=== PATIENT | male | born 1955 | race Caucasian/White ===

== ENCOUNTER → 2019-04-15 | Outpatient (CLI) | payer BC ==
[2019-04-15 10:45] LABS: BASO # 0.1 10*3/uL (0.0-0.1); BASO % 0.4 % (0.0-1.0); EOS # 0.2 10*3/uL (0.0-0.4); EOS % 1.4 % (1.0-4.0); HEMATOCRIT 44.8 % (42.0-52.0); HEMOGLOBIN 15.2 g/dl (14.0-18.0); LYMPH % 16.1 % (27.0-41.0); MEAN CELL VOLUME 95.1 fl (80.0-94.0); MEAN CORPUSCULAR HGB 32.3 pg (27.0-31.0); MEAN CORPUSCULAR HGB CONC 33.9 g/dl (33.0-37.0); MEAN PLATELET VOLUME 9.2 fl (9.6-12.3); MONO # 0.9 10*3/uL (0.1-1.0); MONO % 6.8 % (3.0-9.0); NEUT # 9.4 10*3/uL (2.3-7.9); NEUT % 74.9 % (47.0-73.0); PLATELET COUNT AUTOMATED 287 10*3/uL (130-400); RED BLOOD COUNT 4.71 10*6/uL (4.50-5.90); RED CELL DISTRI WIDTH 12.8 % (0-14.5); WHITE BLOOD COUNT 12.6 10*3/uL (4.8-10.8)
[2019-04-15 11:01] LABS: ALBUMIN 3.5 gm/dl (3.1-4.5); ALKALINE PHOSPHATASE 66 U/L (45-117); BUN 14 mg/dl (7-24); CHLORIDE 107 mmol/L (98-107); CHOLESTEROL 138 mg/dL (<200); CPK 33 U/L (39-308); CREATININE 1.01 mg/dL (0.70-1.30); GAMMA GLUTAMYL TRANSPEPTIDASE 26 U/L (15-85); HDL CHOLESTEROL 40 mg/dl (40-60); LDL CHOLESTEROL 57 mg/dL (9-159); POTASSIUM 3.9 mmol/L (3.5-5.1); SGOT/AST 12 IU/L (3-35); SGPT/ALT 37 U/L (12-78); SODIUM 140 mmol/L (136-145); TOTAL PROTEIN 7.4 gm/dL (6.4-8.2); TRIGLYCERIDES 204 mg/dl (<150); VLDL CHOLESTEROL 41 mg/dL (6-40)
[2019-04-15 12:20] LABS: FERRITIN 254.4 ng/mL (22.0-322.0); VITAMIN D, 25-HYDROXY 24.5 ng/mL (30-100)
[2019-04-15 13:44] LABS: BILIRUBIN NEGATIVE (NEGATIVE); BLOOD NEGATIVE (NEGATIVE); CALCIUM OXALATE CRYSTALS 1+; CLARITY CLOUDY (CLEAR); COLOR YELLOW (YELLOW); GLUCOSE NEGATIVE (NEGATIVE); KETONE NEGATIVE (NEGATIVE); LEUKO ESTERASE NEGATIVE (NEGATIVE); NITRITE NEGATIVE (NEGATIVE); UROBILINOGEN 0.2 E.U./dl (0.2-1.0)
[2019-04-15 13:45] LABS: MUCOUS 1+
== END | disposition home or self-care (01) ==
LOC: LAB 10:07
PROVIDERS: Family Medicine
DX: E55.9 Vitamin D deficiency, unspecified (principal); R53.83 Other fatigue; R79.89 Other specified abnormal findings of blood chemistry

== ENCOUNTER → 2019-12-20 | Outpatient (CLI) | payer BC ==
[2019-12-20 10:59] LABS: BILIRUBIN Negative (Negative); BLOOD Negative (Negative); CLARITY Clear (Clear); COLOR Yellow (Yellow); GLUCOSE Negative (Negative); KETONE Negative (Negative); LEUKO ESTERASE 1+ (Negative); NITRITE Negative (Negative); UROBILINOGEN 0.2 E.U./dl (0.0-1.0)
[2019-12-20 11:02] LABS: BASO # 0.1 10*3/uL (0.0-0.1); BASO % 0.7 % (0.0-1.0); EOS # 0.3 10*3/uL (0.0-0.4); EOS % 4.8 % (1.0-4.0); HEMATOCRIT 45.1 % (42.0-52.0); LYMPH # 2.1 10*3/uL (1.3-4.4); LYMPH % 29.2 % (27.0-41.0); MEAN CELL VOLUME 91.9 fl (80.0-94.0); MEAN CORPUSCULAR HGB 31.2 pg (27.0-31.0); MEAN CORPUSCULAR HGB CONC 33.9 g/dl (33.0-37.0); MONO # 0.5 10*3/uL (0.1-1.0); MONO % 7.6 % (3.0-9.0); NEUT # 4.1 10*3/uL (2.3-7.9); NEUT % 57.6 % (47.0-73.0); PLATELET COUNT AUTOMATED 283 10*3/uL (130-400); RED BLOOD COUNT 4.91 10*6/uL (4.50-5.90); RED CELL DISTRI WIDTH 12.5 % (0-14.5); RETICULOCYTE % 1.61 % (0.50-2.50); WHITE BLOOD COUNT 7.1 10*3/uL (4.8-10.8)
[2019-12-20 11:23] LABS: BACTERIA TRACE; MUCOUS 1+
[2019-12-20 11:33] LABS: ALBUMIN 3.9 gm/dl (3.1-4.5); ALKALINE PHOSPHATASE 75 U/L (45-117); BUN 9 mg/dl (7-24); CHLORIDE 110 mmol/L (98-107); CHOLESTEROL 159 mg/dL (<200); CREATININE 0.96 mg/dL (0.70-1.30); GAMMA GLUTAMYL TRANSPEPTIDASE 42 U/L (15-85); HDL CHOLESTEROL 33 mg/dl (40-60); IRON 97 ug/dL (65-175); LDL CHOLESTEROL 86 mg/dL (9-159); POTASSIUM 3.9 mmol/L (3.5-5.1); SGOT/AST 40 IU/L (3-35); SGPT/ALT 63 U/L (12-78); SODIUM 139 mmol/L (136-145); TOTAL IRON BINDING CAPACITY 330 ug/dl (250-450); TOTAL PROTEIN 8.3 gm/dL (6.4-8.2); TRIGLYCERIDES 200 mg/dl (<150); VLDL CHOLESTEROL 40 mg/dL (6-40)
== END | disposition home or self-care (01) ==
LOC: LAB 10:41
PROVIDERS: ATTEND Family Medicine
DX: R53.83 Other fatigue (principal); R79.89 Other specified abnormal findings of blood chemistry; E78.5 Hyperlipidemia, unspecified

== ENCOUNTER → 2020-02-17 | Outpatient (CLI) | payer MEDICARE, OTHER, BC ==
[~2020-02-17] MED LIST: AMLODIPINE-BEN1 EAC3 PO; CITALOPRAM10 MG PO; CITALOPRAM20 MG PO; CYCLOBENZAPRINE10 MG PO; LIPITOR10 MG PO
== END | disposition home or self-care (01) ==
LOC: COVID19 15:29
PROVIDERS: ATTEND Family Medicine
DX: U07.1 COVID-19 (principal)

== ENCOUNTER 2020-02-20 21:56 | Inpatient (IN) | payer MEDICARE, OTHER, BC ==
[~2020-02-20] VITALS: Ht 177.8 cm; Wt 125.6 kg
[2020-02-20 22:07] VITALS: BP 139/68
[2020-02-20 22:32] LABS: HEMATOCRIT 41.7 % (42.0-52.0); MEAN CELL VOLUME 90.8 fl (80.0-94.0); MEAN CORPUSCULAR HGB 30.5 pg (27.0-31.0); MEAN CORPUSCULAR HGB CONC 33.6 g/dl (33.0-37.0); MEAN PLATELET VOLUME 8.9 fl (9.6-12.3); PLATELET COUNT AUTOMATED 295 10*3/uL (130-400); RED BLOOD COUNT 4.59 10*6/uL (4.50-5.90); RED CELL DISTRI WIDTH 13.3 % (0-14.5); WHITE BLOOD COUNT 11.2 10*3/uL (4.8-10.8)
[2020-02-20 22:37] VITALS: BP 122/65
[2020-02-20 22:48] LABS: ALBUMIN 2.8 gm/dl (3.1-4.5); ALKALINE PHOSPHATASE 61 U/L (45-117); BUN 18 mg/dl (7-24); CHLORIDE 103 mmol/L (98-107); CREATININE 1.25 mg/dL (0.70-1.30); LIPASE 73 U/L (73-393); POTASSIUM 3.3 mmol/L (3.5-5.1); SGOT/AST 80 IU/L (3-35); SGPT/ALT 58 U/L (12-78); SODIUM 135 mmol/L (136-145); TOTAL PROTEIN 7.3 gm/dL (6.4-8.2)
[2020-02-20 22:48] LABS: ABG BASE EXCESS 1.4 mmol/L (-2.0-2.0); ARTERIAL BLOOD GAS PH 7.498 (7.35-7.45)
[2020-02-20 22:53] LABS: PLATELET SUFFICIENCY NORMAL (NORMAL); TOTAL CELLS COUNTED 100 #CELLS
[2020-02-20 22:54] LABS: TROPONIN I < 0.015 ng/ml (<0.045)
[2020-02-20 23:00] VITALS: BP 138/73
[2020-02-20 23:40] VITALS: BP 128/75
--- NOTE | 2020-02-20 23:42 | NUR ---
RESPIRATORY NOTIFIED THAT PT IS TO BE TRANSFERRED TO ICU.
[2020-02-21] VITALS (10 sets, daily range): BP systolic 82–189; BP diastolic 49–86
--- NOTE | 2020-02-21 | NUR ---
A 64 YEAR OLD MALE admitted to ICCU, under the services of ALFREDO Jorgensen DO with a diagnosis of COVID PNEUMONIA. Chief complaint is INCREASING SOB, PULSE OX IN THE 70'S AT HOME. Patient arrived via stretcher from ER. Monitor applied. Initial assessment completed. Vital signs taken and recorded. ALFREDO JORGENSEN DO notified of admission to the unit. Orders received. See assessment for past medical history, medications and allergies. Patient and/or family oriented to unit. [facility] ICCU visitation policy reviewed. Clothing/patient valuable form completed. HEIDY TRAVIS
--- NOTE | 2020-02-21 00:03 | NUR ---
EMILIE CHANGED FROM 100% NRB MASK TO BIPAP. DESATED TO 74% WHILE BEING CHANGED TO BIPAP. 94% AFTER. PT IS ALERT AND ORIENTED.
--- NOTE | 2020-02-21 00:05 | NUR ---
Pt transferred to the ICU from the ER on a 15L NRBM. Transferred pt to the bed and SPO2 74%. Pt placed on BiPap 14/10 and FiO2 85%. SpO2 94%. Alarms on and audible.
[2020-02-21] MEDS ORDERED: LIPITOR10 MG PO (00:32)
[2020-02-21] MEDS ORDERED: CITALOPRAM10 MG PO (00:33)
[2020-02-21] MEDS ORDERED: CITALOPRAM20 MG PO (00:34)
[2020-02-21] MEDS ORDERED: AMLODIPINE-BEN1 EAC3 PO (00:35)
[2020-02-21] MEDS ORDERED: CYCLOBENZAPRINE10 MG PO (00:36)
--- NOTE | 2020-02-21 01:12 | NUR ---
CONSULT INFORMATION GIVEN TO DR VICKERS'S ANSWERING SERVICE. PT RESTING IN BED. TOLERATING BIPAP. GIVES "THUMBS UP" SIGN WHEN I FREQUENTLY CHECK ON HIM.
--- NOTE | 2020-02-21 02:53 | NUR ---
APPEARS TO BE DOZING. BIPAP IN USAGE. PULSE OX LOW 90'S, RR UPPER 20'S TO LOW 30'S.
[2020-02-21 06:10] LABS: HEMATOCRIT 39.1 % (42.0-52.0); MEAN CELL VOLUME 91.8 fl (80.0-94.0); MEAN CORPUSCULAR HGB 30.8 pg (27.0-31.0); MEAN CORPUSCULAR HGB CONC 33.5 g/dl (33.0-37.0); MEAN PLATELET VOLUME 9.3 fl (9.6-12.3); PLATELET COUNT AUTOMATED 298 10*3/uL (130-400); RED BLOOD COUNT 4.26 10*6/uL (4.50-5.90); RED CELL DISTRI WIDTH 13.4 % (0-14.5); WHITE BLOOD COUNT 10.4 10*3/uL (4.8-10.8)
[2020-02-21 06:14] LABS: ALBUMIN 2.6 gm/dl (3.1-4.5); ALKALINE PHOSPHATASE 58 U/L (45-117); BUN 16 mg/dl (7-24); CHLORIDE 104 mmol/L (98-107); CREATININE 0.93 mg/dL (0.70-1.30); LDH 670 U/L (87-241); POTASSIUM 3.6 mmol/L (3.5-5.1); SGOT/AST 67 IU/L (3-35); SGPT/ALT 52 U/L (12-78); SODIUM 136 mmol/L (136-145)
[2020-02-21 06:53] LABS: PLATELET SUFFICIENCY NORMAL (NORMAL); POLYCHROMASIA SLIGHT; TOTAL CELLS COUNTED 100 #CELLS
[2020-02-21 08:11] LABS: ABG BASE EXCESS 2.6 mmol/L (-2.0-2.0); ARTERIAL BLOOD GAS PH 7.465 (7.35-7.45)
--- NOTE | 2020-02-21 08:30 | NUR ---
ENCOURAGED USE OF BI-PAP MUCH TOLERATED AND SELF PRONING.
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
[2020-02-21 14:26] LABS: ABG BASE EXCESS 1.9 mmol/L (-2.0-2.0); ARTERIAL BLOOD GAS PH 7.57 (7.35-7.45)
--- NOTE | 2020-02-21 15:45 | NUR ---
ABG'S CALLED TO DR. FRANCISCO. INTUBATED WITH A # 8 ENDOTUBE AT 24 LIP. TV 500,CMV 16,FIO2 100%, AND PEEP 16. OGT PLACED AND JUSTICE 18 [place]OV[place] PLACED. RIJ MLC INSERTED WITHOUT DIFFICULTY. MEDICATED WITH DIPRIVAN.
[2020-02-21 17:16] LABS: ABG BASE EXCESS 0.2 mmol/L (-2.0-2.0); ARTERIAL BLOOD GAS PH 7.377 (7.35-7.45)
--- NOTE | 2020-02-21 17:58 | NUR ---
ABG REULTS CALLED TO DR FRANCISCO, ORDERS GIVEN TO DECREASE FIO2 TO 70%, ABGS IN 2 HOURS.
[2020-02-21 20:09] LABS: ABG BASE EXCESS -1.3 mmol/L (-2.0-2.0); ARTERIAL BLOOD GAS PH 7.319 (7.35-7.45)
--- NOTE | 2020-02-21 21:00 | NUR ---
called with ABG results. Informed to decrease FiO2 from 70% to 60%. ABG in the AM.
--- NOTE | 2020-02-21 23:21 | NUR ---
FAMILY CALLED IN TO CHECK ON PATIENT.PATIENT FAMILY UPDATED AT THIS TIME.
[2020-02-22] VITALS (24 sets, daily range): BP systolic 82–185; BP diastolic 54–83
--- NOTE | 2020-02-22 01:56 | NUR ---
CALLED DOCTOR ALEIDA PATIENT HEART RTAE HAS BEEN INCREASEING OVER THE LAST COUPLE HOURS CURRENT BP IS 180/88 CURRENTLY
--- NOTE | 2020-02-22 02:15 | NUR ---
PATIENT GIVEN LABETALOL FOR BP. BP NOW 144/72 CURRENTLY.
[2020-02-22 06:11] LABS: ALBUMIN 2.7 gm/dl (3.1-4.5); ALKALINE PHOSPHATASE 64 U/L (45-117); CHLORIDE 105 mmol/L (98-107); CREATININE 0.96 mg/dL (0.70-1.30); LDH 673 U/L (87-241); POTASSIUM 4.2 mmol/L (3.5-5.1); SGOT/AST 69 IU/L (3-35); SODIUM 138 mmol/L (136-145); TOTAL PROTEIN 7.2 gm/dL (6.4-8.2)
[2020-02-22 06:15] LABS: BUN 26 mg/dl (7-24)
[2020-02-22 06:33] LABS: HEMATOCRIT 42.9 % (42.0-52.0); MEAN CORPUSCULAR HGB 31.4 pg (27.0-31.0); MEAN CORPUSCULAR HGB CONC 33.3 g/dl (33.0-37.0); MEAN PLATELET VOLUME 9.8 fl (9.6-12.3); PLATELET COUNT AUTOMATED 382 10*3/uL (130-400); RED BLOOD COUNT 4.55 10*6/uL (4.50-5.90); RED CELL DISTRI WIDTH 13.8 % (0-14.5); WHITE BLOOD COUNT 9.9 10*3/uL (4.8-10.8)
[2020-02-22 06:40] LABS: MEAN CELL VOLUME 94.3 fl (80.0-94.0)
[2020-02-22 07:30] LABS: SGPT/ALT 59 U/L (12-78)
[2020-02-22 07:45] LABS: BURR CELLS FEW; PLATELET SUFFICIENCY NORMAL (NORMAL); TOTAL CELLS COUNTED 100 #CELLS
--- NOTE | 2020-02-22 08:30 | NUR ---
Sedated on vent. Remains on diprivan gtt at 30 arsalan's and nimbex gtt at 2 arsalan;s via rij mlc. Suctioned for small amount oral secretions. Lungs clear bilaterally. Ellsworth draining clear urine with sediment. Ogt intact and clamped.
--- NOTE | 2020-02-22 08:30 | NUR ---
Patient is in COVID isolation precautions and intubated. CM will continue to follow for any discharge planning needs.
[2020-02-22 09:26] LABS: ABG BASE EXCESS -1.5 mmol/L (-2.0-2.0); ARTERIAL BLOOD GAS PH 7.238 (7.35-7.45)
--- NOTE | 2020-02-22 12:00 | NUR ---
Dr. ortega here to see patient. Wants patient to be proned.
--- NOTE | 2020-02-22 15:30 | NUR ---
PRONED BY STAFF. TOLERATED WELL.
--- NOTE | 2020-02-22 16:00 | NUR ---
PULSE OX DROPPED TO 89% SHORTLY AFTER PRONING. ET TUBE REMAINS SECURE AT 26 LIP. 1630- STAT CXR DONE. ABG'S DONE. 1700- SHANELLE BECKY CALLED BACK INTO ROOM. MORE PILLOWS PLACED UNDER CHEST AND HEAD POSITIONED SLIGHTLY TO THE LEFT. PULSE OX INCREASED TO 96%.
[2020-02-22 16:14] LABS: ABG BASE EXCESS 0.1 mmol/L (-2.0-2.0); ARTERIAL BLOOD GAS PH 7.366 (7.35-7.45)
--- NOTE | 2020-02-22 20:00 | NUR ---
Pt resting on ventilator in prone position. SpO2 98% on FiO2 60% ABG sent 2 hours after proning
[2020-02-22 20:07] LABS: ABG BASE EXCESS -0.3 mmol/L (-2.0-2.0); ARTERIAL BLOOD GAS PH 7.327 (7.35-7.45)
--- NOTE | 2020-02-22 21:11 | NUR ---
PT'S CALLS. UPDATED ON PT CONDITION.
--- NOTE | 2020-02-22 23:00 | NUR ---
pt swam as best as i could. head is down and does not turn well
[2020-02-23] VITALS (25 sets, daily range): BP systolic 75–196; BP diastolic 47–93
--- NOTE | 2020-02-23 00:37 | NUR ---
MORPHINE GIVEN AT 0025 PT HYPERTENSIVE...EFFECTIVE, PT BP 130'S.
--- NOTE | 2020-02-23 02:03 | NUR ---
Q2H SWIMMING OF ARMS AND ADJUSTMENT OF HEAD DIRECTED UPON PRONING...DONE BY RESP DEPT.
--- NOTE | 2020-02-23 03:05 | NUR ---
pt swam. arms switch and head pad adjusted
--- NOTE | 2020-02-23 04:30 | NUR ---
PT HYPERTENSIVE. MEDICATED WITH MORPHINE AND EFFECTIVE ALMOST IMMEDIATELY. BP HAS LOWERED AND REMAINS STABLE.
[2020-02-23 05:42] LABS: ALBUMIN 3.1 gm/dl (3.1-4.5); ALKALINE PHOSPHATASE 64 U/L (45-117); BUN 33 mg/dl (7-24); CHLORIDE 106 mmol/L (98-107); LDH 546 U/L (87-241); SGOT/AST 55 IU/L (3-35); SODIUM 139 mmol/L (136-145); TOTAL PROTEIN 7.4 gm/dL (6.4-8.2)
[2020-02-23 06:07] LABS: HEMATOCRIT 42.8 % (42.0-52.0); MEAN CELL VOLUME 95.3 fl (80.0-94.0); MEAN CORPUSCULAR HGB 30.7 pg (27.0-31.0); MEAN CORPUSCULAR HGB CONC 32.2 g/dl (33.0-37.0); MEAN PLATELET VOLUME 9.3 fl (9.6-12.3); NUCLEATED RED BLOOD CELL 0.2 % (0.0-0.0); PLATELET COUNT AUTOMATED 458 10*3/uL (130-400); RED BLOOD COUNT 4.49 10*6/uL (4.50-5.90); WHITE BLOOD COUNT 12.8 10*3/uL (4.8-10.8)
[2020-02-23 06:18] LABS: SGPT/ALT 55 U/L (12-78)
[2020-02-23 06:19] LABS: POTASSIUM 4.1 mmol/L (3.5-5.1)
--- NOTE | 2020-02-23 07:30 | NUR ---
PATIENT UNPRONED AT THIS TIME. ANTHONY FROM [facility] WAS HERE TO ASSIST. PATIENT TOLERATED WELL. ALL LINES AND TUBES ARE IN CORRECT PLACEMENT. ABG TO BE DRAWN IN 2HRS.
[2020-02-23 07:55] LABS: PLATELET SUFFICIENCY NORMAL (NORMAL); TOTAL CELLS COUNTED 100 #CELLS
--- NOTE | 2020-02-23 09:30 | NUR ---
RESPIRATORY HERE DRAWING ABG
[2020-02-23 09:47] LABS: ABG BASE EXCESS 1.5 mmol/L (-2.0-2.0); ARTERIAL BLOOD GAS PH 7.369 (7.35-7.45)
--- NOTE | 2020-02-23 11:15 | NUR ---
DR FRANCISCO IN TO SEE PATIENT.
--- NOTE | 2020-02-23 11:45 | NUR ---
DISCUSSED CASE WITH DR FRANCISCO
--- NOTE | 2020-02-23 13:45 | NUR ---
CALLED IN AND WAS UPDATED ON PLAN OF CARE AND WAS PROVIDED WITH LATEST INFORMATION FROM DOCTORS. ALL QUESTIONS ANSWERED
[2020-02-23 14:11] LABS: ABG BASE EXCESS 1.8 mmol/L (-2.0-2.0); ARTERIAL BLOOD GAS PH 7.327 (7.35-7.45)
--- NOTE | 2020-02-23 15:30 | NUR ---
PATIENT EXPERIENCING PERIODIC HYPOTENSION, LASTS LONG ENOUGH FOR RN TO GO INTO ROOM AND SHUT DIPROVAN OFF FOR APPROXIMATELY 5 MINUTES AND THEN BECOMES HYPERTENSIVE AGAIN. DIPROVAN REMAINS INFUSING AT 40MCGS. RN WILL CONTINUE TO MONITOR
--- NOTE | 2020-02-23 20:00 | NUR ---
PT RESTING IN BED WITH EYES CLOSED. ENDOTUBE PATENT, TIES SECURE, VENT SETTINGS VERIFIED AND FUNCTIONING WITHOUT DIFFICULTY. OGT PATENT, PLACEMENT VERIFIED VIA AIR BOLUS AND TF LUCÍA WELL. JUSTICE PATENT FOR DARK SILVANA URINE.RIGHT IJ MLC AND LEFT ARTLINE PATENT, DRESSINGS DRY AND INTACT. IVF'S INFUSING ORDERED WITHOUT DIFFICULTY. NO S/S OF HYPO/HYPERGLYCEMIA NOTED. ISOLATION PRECAUTIONS MAINTAINED.
[2020-02-24] VITALS (25 sets, daily range): BP systolic 104–202; BP diastolic 63–96
[2020-02-24 05:46] LABS: LDH 508 U/L (87-241)
[2020-02-24 06:11] LABS: HEMATOCRIT 42.5 % (42.0-52.0); MEAN CELL VOLUME 97.3 fl (80.0-94.0); MEAN CORPUSCULAR HGB CONC 32.9 g/dl (33.0-37.0); MEAN PLATELET VOLUME 9.5 fl (9.6-12.3); PLATELET COUNT AUTOMATED 475 10*3/uL (130-400); RED BLOOD COUNT 4.37 10*6/uL (4.50-5.90); RED CELL DISTRI WIDTH 14.1 % (0-14.5); WHITE BLOOD COUNT 12.6 10*3/uL (4.8-10.8)
[2020-02-24 06:50] LABS: PLATELET SUFFICIENCY HIGH (NORMAL); TOTAL CELLS COUNTED 100 #CELLS
[2020-02-24 07:28] LABS: ALKALINE PHOSPHATASE 66 U/L (45-117); BUN 38 mg/dl (7-24); CHLORIDE 111 mmol/L (98-107); CREATININE 1.02 mg/dL (0.70-1.30); POTASSIUM 4.9 mmol/L (3.5-5.1); SGOT/AST 52 IU/L (3-35); SGPT/ALT 56 U/L (12-78); SODIUM 147 mmol/L (136-145); TOTAL PROTEIN 6.6 gm/dL (6.4-8.2)
[2020-02-24 07:30] LABS: TRIGLYCERIDES 1212 mg/dl (<150)
[2020-02-24 08:42] LABS: ABG BASE EXCESS 4.3 mmol/L (-2.0-2.0); ARTERIAL BLOOD GAS PH 7.348 (7.35-7.45)
--- NOTE | 2020-02-24 08:48 | NUR ---
DR FRANCISCO NOTIFIED OF TRIGLYCERIDES AND DIPROVAN AT 50MCG/KG/MIN
--- NOTE | 2020-02-24 09:00 | NUR ---
Patient is in COVID isolation precautions and intubated. CM will continue to follow for any discharge planning needs.
[2020-02-24 12:10] LABS: BILIRUBIN Negative (Negative); BLOOD 2+ (Negative); CLARITY Clear (Clear); COLOR Yellow (Yellow); GLUCOSE Negative (Negative); KETONE Negative (Negative); LEUKO ESTERASE Negative (Negative); NITRITE Negative (Negative); SPECIFIC GRAVITY >= 1.030 (1.001-1.030); UROBILINOGEN 0.2 E.U./dl (0.0-1.0)
[2020-02-24 12:47] LABS: RBC TNTC rbc/hpf (0-2)
[2020-02-24 12:54] LABS: BACTERIA 2+; URIC ACID CRYSTALS 2+
--- NOTE | 2020-02-24 13:20 | NUR ---
pt given sedation vacation while nimnex held and ketamine d/arely, started at 1250, 1315 pt able to open eyes wiggle toes and wiggle fingers, given 5mg versed for vent control. HR down, and bp down after versed
--- NOTE | 2020-02-24 13:47 | NUR ---
pt starting to pull 1040 TV, AFTER WAKING UP A LITTLE, NIMBEX STARTED BACK UP AT 2MCG/KG/MIN
[2020-02-24 14:10] LABS: ABG BASE EXCESS 3.8 mmol/L (-2.0-2.0); ARTERIAL BLOOD GAS PH 7.376 (7.35-7.45)
--- NOTE | 2020-02-24 14:33 | NUR ---
IV VERSED GIVEN FOR INCREASED HR\ AND BP
[2020-02-24 17:25] LABS: ABG BASE EXCESS 4.5 mmol/L (-2.0-2.0); ARTERIAL BLOOD GAS PH 7.309 (7.35-7.45)
--- NOTE | 2020-02-24 18:49 | NUR ---
USING Q1HR VERSED AND PRN DIULADID FOR SEDATION WHILE ON VENT AND NIMBEX
--- NOTE | 2020-02-24 19:45 | NUR ---
DR FRANCISCO CALLED IN AND ORDER FOR HALDOL TO BE GIVEN X2 BETWEEN SCHEDULES DOSES IF NEEDED.
[2020-02-24 19:52] LABS: ABG BASE EXCESS 6.2 mmol/L (-2.0-2.0); ARTERIAL BLOOD GAS PH 7.368 (7.35-7.45)
--- NOTE | 2020-02-24 20:00 | NUR ---
PT RESTING IN BED WITH EYES CLOSE. ENDOTUBE PATENT, TIES SECURE, VENT SETTINGS VERIFIED AND FUNCTIONING WITHOUT DIFFICULTY. OGT PATENT, PLACEMENT VERIFIED VIA AIRBOLUS. TF LUCÍA WELL. RIGHT IJ MLC AND LEFT ART LINE PATENT, DRESSINGS DRY AND INTACT. JUSTICE PATENT FOR DARK SILVANA URINE. NO S/S OF HYPO/HYPERGLYCEMIA NOTED. ISOLATION PRECAUTIONS MAINTAINED.
[2020-02-25] VITALS (24 sets, daily range): BP systolic 97–191; BP diastolic 57–89
--- NOTE | 2020-02-25 01:50 | NUR ---
MEDICATED WITH DILAUDID FOR S/S OF PAIN.
[2020-02-25 05:55] LABS: MEAN CELL VOLUME 97.5 fl (80.0-94.0); MEAN CORPUSCULAR HGB 30.2 pg (27.0-31.0); MEAN CORPUSCULAR HGB CONC 30.9 g/dl (33.0-37.0); MEAN PLATELET VOLUME 9.1 fl (9.6-12.3); PLATELET COUNT AUTOMATED 423 10*3/uL (130-400); RED BLOOD COUNT 4.41 10*6/uL (4.50-5.90); WHITE BLOOD COUNT 8.2 10*3/uL (4.8-10.8)
[2020-02-25 06:08] LABS: ALBUMIN 2.7 gm/dl (3.1-4.5); BUN 41 mg/dl (7-24); CHLORIDE 113 mmol/L (98-107); CREATININE 1.06 mg/dL (0.70-1.30); POTASSIUM 4.4 mmol/L (3.5-5.1); SGOT/AST 57 IU/L (3-35); SGPT/ALT 57 U/L (12-78); SODIUM 149 mmol/L (136-145); TOTAL PROTEIN 6.5 gm/dL (6.4-8.2)
[2020-02-25 06:10] LABS: ALKALINE PHOSPHATASE 65 U/L (45-117); CPK 585 U/L (39-308); LDH 398 U/L (87-241)
--- NOTE | 2020-02-25 06:35 | NUR ---
MEDICATED WITH PRN VERSED, DILAUDID, AND HALDOL SEVERAL TIMES THROUGHOUT SHIFT AND EFFECTIVE FOR SHORT PERIODS OF TIME.
--- NOTE | 2020-02-25 08:00 | NUR ---
ENDOTUBE SECURE AT 26CM LIP. REMAINS ON NIMBEX 1MIC. ARTERIAL LINE CALIBRATED WITH GOOD WAVE. RIJ INPLACE. REPOSITIONED. VSS. OGT INPLACE PLACEMENT CHECKED WITH AIR BOLUS. ROBERTO COTTON RN
[2020-02-25 08:12] LABS: ATYPICAL LYMPHS 1 % (0-0); PLATELET SUFFICIENCY HIGH (NORMAL); TOTAL CELLS COUNTED 100 #CELLS
[2020-02-25 08:50] LABS: ABG BASE EXCESS 5.4 mmol/L (-2.0-2.0); ARTERIAL BLOOD GAS PH 7.403 (7.35-7.45)
--- NOTE | 2020-02-25 09:00 | NUR ---
Patient is in COVID isolation precautions and intubated. CM will continue to follow for any discharge planning needs.
--- NOTE | 2020-02-25 12:00 | NUR ---
NIMBEX TITRATED TO 0.5MIC. CONTINUES TO BE MEDICATED WITH HALDOL AND VERSED ORDERED. ROBERTO COTTON RN
--- NOTE | 2020-02-25 13:30 | NUR ---
RIGHT NARES NGT INSERTED WITHOUT DIFFUCULTY. PLACEMENT CHECKED WITH AIR BOLUS AND CHEST XRAY. ROBERTO COTTON RN
[2020-02-25 16:55] LABS: ABG BASE EXCESS 7.2 mmol/L (-2.0-2.0); ARTERIAL BLOOD GAS PH 7.451 (7.35-7.45)
--- NOTE | 2020-02-25 21:15 | NUR ---
SPOKE WITH PATIENTS AND UPDATED HER ON PLAN OF CARE AND PATIENT CONDITION. ALL QUESTIONS ANSWERED
--- NOTE | 2020-02-25 21:54 | NUR ---
MEDICATED WITH MORPHINE, DILUADID, VERSED AND HALDOL PER DRS ORDERS FOR PERSEVED PAIN AND AGITATION. BLOOD PRESSURE HAS BEEN ELEVATED FOR SOME TIME
[2020-02-26] VITALS (24 sets, daily range): BP systolic 95–197; BP diastolic 53–86
--- NOTE | 2020-02-26 03:15 | NUR ---
MEDICATED WITH SEVERAL MEDICATIONS AT THIS TIME FOR VARIOUS PERSEVED COMPLAINTS.
--- NOTE | 2020-02-26 03:25 | NUR ---
TYLENOL VIA NG TUBE WAS GIVEN FOR ELEVATED TEMPERATURE.
[2020-02-26 04:54] LABS: HEMATOCRIT 42.3 % (42.0-52.0); MEAN CELL VOLUME 98.1 fl (80.0-94.0); MEAN CORPUSCULAR HGB 30.9 pg (27.0-31.0); MEAN CORPUSCULAR HGB CONC 31.4 g/dl (33.0-37.0); MEAN PLATELET VOLUME 9.1 fl (9.6-12.3); NUCLEATED RED BLOOD CELL 0.2 % (0.0-0.0); PLATELET COUNT AUTOMATED 391 10*3/uL (130-400); RED BLOOD COUNT 4.31 10*6/uL (4.50-5.90)
[2020-02-26 05:15] LABS: ALBUMIN 2.8 gm/dl (3.1-4.5); ALKALINE PHOSPHATASE 61 U/L (45-117); BUN 38 mg/dl (7-24); CHLORIDE 117 mmol/L (98-107); CPK 593 U/L (39-308); CREATININE 0.95 mg/dL (0.70-1.30); LDH 360 U/L (87-241); POTASSIUM 4.5 mmol/L (3.5-5.1); SGOT/AST 46 IU/L (3-35); SGPT/ALT 58 U/L (12-78); SODIUM 152 mmol/L (136-145); TOTAL PROTEIN 6.5 gm/dL (6.4-8.2); TRIGLYCERIDES 597 mg/dl (<150)
[2020-02-26 05:27] LABS: ATYPICAL LYMPHS 1 % (0-0); PLATELET SUFFICIENCY NORMAL (NORMAL); TOTAL CELLS COUNTED 100 #CELLS
--- NOTE | 2020-02-26 05:34 | NUR ---
MEDICATED WITH VERSED FOR PERSEVED PAIN AND AGITATION. BLOOD PRESSURE IS ELEVATED.
--- NOTE | 2020-02-26 08:30 | NUR ---
MEDICATED WITH 2 TYLENOL FOR TEMP 100.9 RECTALLY. HEART RATE 120'S SINUS TACH. LUNGS CLEAR BILATERALLY. NGT IN PLACE AND PULMOCARE INFUSING AT 20CC/HR. 10CC RESIDUAL NOTED. JUSTICE DRAINING CLEAR YELLOW URINE. SOFT RESTRAINTS ON TO BILATERAL WRIST. NIMBEX GTT INFUSING AT 0.5 ELAYNE'S
[2020-02-26 08:42] LABS: ABG BASE EXCESS 8.7 mmol/L (-2.0-2.0); ARTERIAL BLOOD GAS PH 7.492 (7.35-7.45)
--- NOTE | 2020-02-26 11:30 | NUR ---
DR. VICKERS HERE TO SEE PATIENT. COMPLETE BATH AND BED DONE
[2020-02-26 11:51] LABS: ABG BASE EXCESS 7.8 mmol/L (-2.0-2.0); ARTERIAL BLOOD GAS PH 7.393 (7.35-7.45)
--- NOTE | 2020-02-26 12:00 | NUR ---
NIMEX GTT INCREASED TO 2 ELAYNE'S
[2020-02-26 14:51] LABS: ABG BASE EXCESS 6.3 mmol/L (-2.0-2.0); ARTERIAL BLOOD GAS PH 7.345 (7.35-7.45)
--- NOTE | 2020-02-26 16:00 | NUR ---
REMAINS PARALYZED ON VENT.
[2020-02-27] VITALS (24 sets, daily range): BP systolic 106–173; BP diastolic 62–85
--- NOTE | 2020-02-27 05:15 | NUR ---
MORNING LABS COLLECTED AND SENT AT THIS TIME. PATIENT REPOSITIONED AND TURNED IN BED. NO SIGNS OR SYMPTOMS OF DISTRESS. RN WILL CONTINUE TO MONITOR
[2020-02-27 05:59] LABS: ALBUMIN 2.8 gm/dl (3.1-4.5); ALKALINE PHOSPHATASE 66 U/L (45-117); BUN 34 mg/dl (7-24); CHLORIDE 115 mmol/L (98-107); CREATININE 0.96 mg/dL (0.70-1.30); LDH 367 U/L (87-241); POTASSIUM 5.1 mmol/L (3.5-5.1); SGOT/AST 41 IU/L (3-35); SGPT/ALT 62 U/L (12-78); SODIUM 151 mmol/L (136-145); TOTAL PROTEIN 6.8 gm/dL (6.4-8.2)
[2020-02-27 06:10] LABS: CPK 307 U/L (39-308)
[2020-02-27 06:22] LABS: HEMATOCRIT 46.2 % (42.0-52.0); MEAN CELL VOLUME 100.2 fl (80.0-94.0); MEAN CORPUSCULAR HGB 30.6 pg (27.0-31.0); MEAN CORPUSCULAR HGB CONC 30.5 g/dl (33.0-37.0); MEAN PLATELET VOLUME 9.5 fl (9.6-12.3); PLATELET COUNT AUTOMATED 432 10*3/uL (130-400); RED BLOOD COUNT 4.61 10*6/uL (4.50-5.90); RED CELL DISTRI WIDTH 13.9 % (0-14.5); WHITE BLOOD COUNT 12.6 10*3/uL (4.8-10.8)
[2020-02-27 07:10] LABS: PLATELET SUFFICIENCY HIGH (NORMAL); TOTAL CELLS COUNTED 100 #CELLS
[2020-02-27 08:46] LABS: ABG BASE EXCESS 8.6 mmol/L (-2.0-2.0); ARTERIAL BLOOD GAS PH 7.402 (7.35-7.45)
--- NOTE | 2020-02-27 13:00 | NUR ---
DR. FRANCISCO HERE TO SEE PATIENT
--- NOTE | 2020-02-27 14:15 | NUR ---
NIMBEX GTT TURNED OFF
[2020-02-27 16:18] LABS: ABG BASE EXCESS 7.4 mmol/L (-2.0-2.0); ARTERIAL BLOOD GAS PH 7.388 (7.35-7.45)
--- NOTE | 2020-02-27 17:01 | NUR ---
SLUGGISH TO OPEN EYES AND FOLLOW COMMANDS. TAPPING LEG AND FEET
--- NOTE | 2020-02-27 18:10 | NUR ---
PER DR FRANCISCO, MODE CHANGED TO CPAP OF 8 WITH PS OF 15 AND 40%. WITHIN 2 MINS, RR INCREAsed to 40 vst 300-400. HR 127 SPO2 TO 90% MODE CHANGED BACK TO AC WITH PREVIOUS SETTINGS AND FIO2 INCREASED BACK TO 50% PT RESTING COMFORTABLY.
--- NOTE | 2020-02-27 19:07 | NUR ---
TYLENOL GIVEN FOR RECTAL TEMP 103.1
[2020-02-27 20:48] LABS: ABG BASE EXCESS 6.7 mmol/L (-2.0-2.0); ARTERIAL BLOOD GAS PH 7.494 (7.35-7.45)
--- NOTE | 2020-02-27 21:30 | NUR ---
PATIENT PLACED ON HYPERTHERMIA BLANKET DUE TO TEMP 104.0 RECTAL.TYLENOL GIVEN AT 1900 NOT EFFECTIVE.
--- NOTE | 2020-02-27 23:37 | NUR ---
PATIENT GIVEN VERSED PATIENT SHAKING HIS LEGS RESPS ARE IN THE 40'S
[2020-02-28] VITALS (23 sets, daily range): BP systolic 89–158; BP diastolic 61–93
--- NOTE | 2020-02-28 00:12 | NUR ---
PATIENT TEMP CURRENTLY 100.1 ON COOLING BLANKET.
[2020-02-28 06:32] LABS: MEAN CELL VOLUME 100.4 fl (80.0-94.0); MEAN CORPUSCULAR HGB CONC 30.8 g/dl (33.0-37.0); PLATELET COUNT AUTOMATED 417 10*3/uL (130-400); RED BLOOD COUNT 4.78 10*6/uL (4.50-5.90); RED CELL DISTRI WIDTH 13.7 % (0-14.5); WHITE BLOOD COUNT 13.8 10*3/uL (4.8-10.8)
--- NOTE | 2020-02-28 06:37 | NUR ---
AFTER SEVERAL ATTEMPTS THIS MORNING PATIENT DID LOOK AT ME AND DID SQUEEZE MY HAND WHEN INSTRUCTED TO.
[2020-02-28 06:39] LABS: ALBUMIN 3.1 gm/dl (3.1-4.5); CHLORIDE 118 mmol/L (98-107); CREATININE 1.35 mg/dL (0.70-1.30); LDH 473 U/L (87-241); POTASSIUM 4.5 mmol/L (3.5-5.1); SGOT/AST 58 IU/L (3-35); SGPT/ALT 58 U/L (12-78); SODIUM 154 mmol/L (136-145); TOTAL PROTEIN 6.7 gm/dL (6.4-8.2)
[2020-02-28 06:52] LABS: ALKALINE PHOSPHATASE 62 U/L (45-117)
[2020-02-28 06:54] LABS: BUN 61 mg/dl (7-24); CPK 1456 U/L (39-308)
[2020-02-28 07:22] LABS: TOTAL CELLS COUNTED 100 #CELLS
[2020-02-28 07:23] LABS: PLATELET SUFFICIENCY HIGH (NORMAL); ROULEAUX SLIGHT
[2020-02-28 07:59] LABS: ABG BASE EXCESS 6.6 mmol/L (-2.0-2.0); ARTERIAL BLOOD GAS PH 7.471 (7.35-7.45)
--- NOTE | 2020-02-28 09:00 | NUR ---
Patient is in COVID isolation precautions and intubated. CM will follow for any discharge planning needs.
[2020-02-28 14:17] LABS: ABG BASE EXCESS 5.7 mmol/L (-2.0-2.0); ARTERIAL BLOOD GAS PH 7.486 (7.35-7.45)
--- NOTE | 2020-02-28 15:00 | NUR ---
PEEP DECREASED TO +5, PSV DECREASED TO +[address] FRANCISCO.
[2020-02-28 17:35] LABS: ABG BASE EXCESS 5.7 mmol/L (-2.0-2.0); ARTERIAL BLOOD GAS PH 7.49 (7.35-7.45)
--- NOTE | 2020-02-28 18:20 | NUR ---
HALDOL 2.5MG IV GIVEN ORDERED. ROBERTO COTTON RN
--- NOTE | 2020-02-28 20:00 | NUR ---
Pt resting comfortably on the ventilator with eyes closed on CPAP 15/5 and 30%
--- NOTE | 2020-02-28 20:45 | NUR ---
SPOKE WITH DR FRANCISCO VIA PHONE, UPDATED ON PATIENT CONDITION AFTER RECEIVING EARLIER MEDIATION. STATES TO KEEP PATIENT ON CPAP MODE THROUGHOUT THE NIGHT, GIVE HALDOL PRN IF NEEDED FOR INCREASED AGITATION THROUGH THE NIGHT BUT ONLY IF NECCESSARY.
--- NOTE | 2020-02-28 21:00 | NUR ---
CALLED PATIENTS NAD UPDATED HER ON PLAN OF CARE AND POSSIBLE EXTUBATION IN THE AM.
[2020-02-29] VITALS (16 sets, daily range): BP systolic 101–144; BP diastolic 62–84
--- NOTE | 2020-02-29 00:15 | NUR ---
PATIENT BATHED AT THIS TIME, HE HAS HAD LARGE LIQUID BROWN BOWEL MOVEMENT ALL OVER THE BED. TOLERATED WELL. PATIENT REMAINED ON CPAP THROUGOUT THE ENTIRE TIME. RN WILL CONTINUE TO MONITOR
--- NOTE | 2020-02-29 00:31 | NUR ---
TYLENOL GIVEN TO PATIENT FOR ELEVATED TEMPERATURE. PER CONTINUOUS RECTAL PROBE HE IS 102. COOLING BLANKET APPLIED TO PATIENT WELL. RN WILL CONTINUE TO MONITOR
--- NOTE | 2020-02-29 00:32 | NUR ---
TYLENOL GIVEN FOR ELEVATED TEMPERATURE. RN WILL MONITOR
--- NOTE | 2020-02-29 02:30 | NUR ---
SPOKE WITH GRANDSON ABOUT POSSIBLE EXTUBATION. ALL QUESTIONS ANSWERED.
--- NOTE | 2020-02-29 03:45 | NUR ---
PATIENT RESTING QUIETLY WITH EYES CLOSED. NO SIGNS OR SYMPTOMS OF DISTRESS SEEN ON CPAP MODE 15/5 AND 30% OXYGEN. PATIENT REMAINS FEBRILE AND COOLING BLANKET IN PLACE. RECTAL PROBE STILL IN PLACE AND READING 101.2.
[2020-02-29 06:15] LABS: ALBUMIN 2.6 gm/dl (3.1-4.5); BUN 62 mg/dl (7-24); CHLORIDE 123 mmol/L (98-107); CREATININE 1.24 mg/dL (0.70-1.30); POTASSIUM 4.5 mmol/L (3.5-5.1); SGOT/AST 49 IU/L (3-35); SGPT/ALT 50 U/L (12-78); SODIUM 155 mmol/L (136-145)
[2020-02-29 06:19] LABS: ALKALINE PHOSPHATASE 64 U/L (45-117); CPK 935 U/L (39-308); LDH 397 U/L (87-241); TOTAL PROTEIN 5.7 gm/dL (6.4-8.2)
[2020-02-29 06:26] LABS: HEMATOCRIT 47.7 % (42.0-52.0); MEAN CELL VOLUME 99.6 fl (80.0-94.0); MEAN CORPUSCULAR HGB 31.5 pg (27.0-31.0); MEAN CORPUSCULAR HGB CONC 31.7 g/dl (33.0-37.0); MEAN PLATELET VOLUME 10.6 fl (9.6-12.3); PLATELET COUNT AUTOMATED 360 10*3/uL (130-400); RED BLOOD COUNT 4.79 10*6/uL (4.50-5.90); RED CELL DISTRI WIDTH 13.9 % (0-14.5); WHITE BLOOD COUNT 17.4 10*3/uL (4.8-10.8)
[2020-02-29 07:33] LABS: PLATELET SUFFICIENCY NORMAL (NORMAL); TOTAL CELLS COUNTED 100 #CELLS
[2020-02-29 08:28] LABS: ABG BASE EXCESS 3.4 mmol/L (-2.0-2.0); ARTERIAL BLOOD GAS PH 7.432 (7.35-7.45)
--- NOTE | 2020-02-29 08:36 | NUR ---
MEDICATED WITH 2 TYLENOL FOR TEMP 101
--- NOTE | 2020-02-29 09:15 | NUR ---
COVID +. Patient is intubated. Discharge plan undecided at this time. CM will continue to follow for any discharge planning needs.
--- NOTE | 2020-02-29 13:00 | NUR ---
EXTUBATED. PLACED ON BI-PAP 28/12 AND O2 35%. DROWSY. OPENS EYES WHEN NAME IS CALLED AND THEN GOES BACK TO SLEEP. 1320- PULSE OX 87% ON BI-PAP. O2 INCREASED TO 55%
--- NOTE | 2020-02-29 13:18 | NUR ---
PT. EXTUBATED TO BIPAP 14/10 WITH 40% O2 AT APPRX. 1300, ABG IN 2 HOURS.
--- NOTE | 2020-02-29 13:50 | NUR ---
TEMP 100.8 RECTALLY
[2020-02-29 14:00] LABS: ARTERIAL BLOOD GAS PH 7.354 (7.35-7.45)
--- NOTE | 2020-02-29 15:00 | NUR ---
COMPLETE BED AND BATH DONE. EYES FIXED UP. SQUEEZES HANDS ON COMMAND.
[2020-02-29 15:40] LABS: ABG BASE EXCESS 0.9 mmol/L (-2.0-2.0); ARTERIAL BLOOD GAS PH 7.244 (7.35-7.45)
--- NOTE | 2020-02-29 16:33 | NUR ---
EDMAR ARREOLA FROM [facility] HERE. NEW ARTERIAL LINE PLACED RT RADIAL. OLD LEFT RADIAL ARTERIAL LINE REMOVED. CATHETER TIP COLLECTED IN STERILE CUP. SHE IS NOW WORKING ON [employer]. PT IS LETHARGIC. ON BIPAP. JUSTICE PATENT SILVANA URINE. COOLING BLANKET ON TOP OF PATIENT.
--- NOTE | 2020-02-29 18:36 | NUR ---
EDMAR ARREOLA UNABLE TO PLACE A LIJ MLC. PCXR WAS DONE AFTER TO R/O PNEUMOTHORAX. THE INTERPRETATION SAYS ETT IN ADEQUATE POSITION BUT PT DOESN'T HAVE AN ETT. [facility] CALLED AND ARE TO BE PLACING ADDENDUM TO XRAY REPORT. DR CLEVELAND WAS NOTIFIED THAT UNABLE TO GET ANOTHER MLC. SHE ASKED THAT I TRY TO GET A PERIPHERAL. A #20 ACCUCATH PLACED RT ANTECUBITAL USING ULTRASOUND FOR GUIDANCE. PT HAD BEEN INCONTINENT OF LIQUID BM. COMPLETE BED CHANGE AND YI CARE DONE.
--- NOTE | 2020-02-29 19:23 | NUR ---
RIJ MLC WAS REMOVED INTACT. TIP INTO STERILE CUP WITH STERILE SCISSORS.
[2020-02-29 20:10] LABS: ABG BASE EXCESS 3.3 mmol/L (-2.0-2.0); ARTERIAL BLOOD GAS PH 7.433 (7.35-7.45)
--- NOTE | 2020-02-29 20:10 | NUR ---
ABG RESULTS CALLED BY RESPIRATORY TO DR FRANCISCO. NO NEW ORDERS
--- NOTE | 2020-02-29 21:04 | NUR ---
PATIENT MEDICATED WITH HALDOL FOR INCREASED RESPIRATIONS R/T POSSIBLE ANXIETY. RN WILL MONITOR FOR EFFECTIVENESS
--- NOTE | 2020-02-29 21:20 | NUR ---
RESPIRATORY INCREASED OXYGEN TO 80% DUE TO PATIENT PULSE OXIMETRY REMAINING AT 88%, INCREASED TO 90% AFTER INCREASING OXYGEN
[2020-03-01] VITALS (24 sets, daily range): BP systolic 68–113; BP diastolic 39–67
[2020-03-01 05:45] LABS: ALBUMIN 2.4 gm/dl (3.1-4.5); CREATININE 1.44 mg/dL (0.70-1.30); POTASSIUM 5.4 mmol/L (3.5-5.1); TOTAL PROTEIN 5.4 gm/dL (6.4-8.2)
[2020-03-01 06:15] LABS: HEMATOCRIT 46.5 % (42.0-52.0); MEAN CELL VOLUME 98.5 fl (80.0-94.0); MEAN CORPUSCULAR HGB 31.1 pg (27.0-31.0); MEAN CORPUSCULAR HGB CONC 31.6 g/dl (33.0-37.0); MEAN PLATELET VOLUME 11.4 fl (9.6-12.3); PLATELET COUNT AUTOMATED 314 10*3/uL (130-400); RED BLOOD COUNT 4.72 10*6/uL (4.50-5.90); RED CELL DISTRI WIDTH 13.3 % (0-14.5); WHITE BLOOD COUNT 27.7 10*3/uL (4.8-10.8)
[2020-03-01 06:55] LABS: TOTAL CELLS COUNTED 100 #CELLS
[2020-03-01 06:56] LABS: PLATELET SUFFICIENCY NORMAL (NORMAL); POLYCHROMASIA SLIGHT
--- NOTE | 2020-03-01 08:00 | NUR ---
PATIENT IS LETHARGIC ON BIPAP. OPENS EYES BUT DOES NOT FOLLOW COMMANDS. BIPAP FIO2 IS 70% POX 98% LUNGS VERY DIMINISHED BUT CLEAR. OBESE ABDOMEN PULMOCARE INFUSING @40/HR. JUSTICE PATENT FOR LIGHT YELLOW URINE. ART LINE ZEROED.
[2020-03-01 08:24] LABS: ABG BASE EXCESS 3.1 mmol/L (-2.0-2.0); ARTERIAL BLOOD GAS PH 7.489 (7.35-7.45)
--- NOTE | 2020-03-01 09:29 | NUR ---
CM spoke to , Martha, via phone. Patient states lives at home with his , dog, and 2 cats. There are 0 steps in the home. There is 1 outside step. Physician: Dr. Garfield Law Pharmacy: [facility] health services: would like OV on discharge Patient's level of ADLs: INDEPENDENT Patient has working utilities: yes DME: c-pap Follow-up physician's appointment after d/c: will be made by the hospitalist nurse director upon discharge Does patient want to access PORTAL?: no Discharge plan discussed with . Patient lives with her and their dog and 2 cats. She states they are all on one floor with the exception of 1 step to get in from outside. He is normally independent in his ADLs and ambulation. Discussed short term rehab and she refuses. Discussed home health care services and she is agreeable. When provided with a list of agencies she chose [facility]. Will await therapy recommendations to speak further with the . Discharge plan undecided at this time. CM will continue to follow for any discharge planning needs. ALMAZ ARAUJO
--- NOTE | 2020-03-01 10:47 | NUR ---
Spoke to , Martha, regarding her needing extensive rehab after discharge from the hospital. Discussed local SNFs and LTACs and she is not agreeable at all. She would like to speak to her grandson who is a nurse and gets his thoughts. Awaiting return call.
[2020-03-01 14:05] LABS: ABG BASE EXCESS 1.2 mmol/L (-2.0-2.0); ARTERIAL BLOOD GAS PH 7.381 (7.35-7.45)
--- NOTE | 2020-03-01 14:10 | NUR ---
ABG DONE ON 40% VIA BIPAP.
--- NOTE | 2020-03-01 19:22 | NUR ---
TYLENOL GIVEN FOR POTENTIAL PAIN HALDOL GIVEN FOR POTENTIAL UNFORSEEN ANXIETY LEVAPHED STARTED AT [address] LENTZ AWARE UPDATED PT HAS NO RESPONSE TO PAIN, VERBAL OR TACTILE STIMULI REPOSITIONED
--- NOTE | 2020-03-01 20:40 | NUR ---
DR FRANCISCO UPDATED-ORDERED FOR REINTUBATION SORAIDA NOTIFIED
--- NOTE | 2020-03-01 21:00 | NUR ---
GAVE PER,ISSION FOR INTUBATION AND LINE INSERTION
--- NOTE | 2020-03-01 21:49 | NUR ---
PATIENT RE INTUBATED , PLACED ON SETTING: A/C 12,500,60%,8+ PER DR FRANCISCO.
--- NOTE | 2020-03-01 22:30 | NUR ---
PT HAS BEEN REINTUBATED BY [facility] CENTRAL LINE PLACED IN RIJ PT NOW ON DIPROVAN AT 10 NIMBEX AT 0.5 LEVAPHED AT 20M VASOPRESSIN AT 0.04 CENTRAL LINE AND ETT VERIFIED BY ANESTHIA
[2020-03-01 23:14] LABS: ARTERIAL BLOOD GAS PH 7.24 (7.35-7.45)
[2020-03-02] VITALS (60 sets, daily range): BP systolic 15–108; BP diastolic 6–67
--- NOTE | 2020-03-02 04:00 | NUR ---
EPI DRIP STARTED FOR MAP 61 LEVAPHED MAXED, VASOPRESSIN MAXED DR LENTZ AWARE
--- NOTE | 2020-03-02 05:30 | NUR ---
COOLING BLANKET PLACED ON PT CRITICAL LABS CALLED TO RESIDENT
--- NOTE | 2020-03-02 05:44 | NUR ---
DR FRANCISCO UPDATED, ON VS, AND HE STILL WANTS PT TO BE PRONED
[2020-03-02 06:01] LABS: ALBUMIN 2.2 gm/dl (3.1-4.5); CREATININE 3.62 mg/dL (0.70-1.30); POTASSIUM 5.6 mmol/L (3.5-5.1); TOTAL PROTEIN 4.7 gm/dL (6.4-8.2)
[2020-03-02 07:26] LABS: BASO # 0.1 10*3/uL (0.0-0.1); BASO % 0.2 % (0.0-1.0); HEMATOCRIT 40.6 % (42.0-52.0); LYMPH # 2.9 10*3/uL (1.3-4.4); LYMPH % 8.6 % (27.0-41.0); MEAN CORPUSCULAR HGB 31.2 pg (27.0-31.0); MEAN CORPUSCULAR HGB CONC 29.1 g/dl (33.0-37.0); MEAN PLATELET VOLUME 12.8 fl (9.6-12.3); MONO # 4.7 10*3/uL (0.1-1.0); MONO % 14.1 % (3.0-9.0); NEUT # 24.9 10*3/uL (2.3-7.9); NEUT % 75.7 % (47.0-73.0); NUCLEATED RED BLOOD CELL 0.1 10*3/uL (0.0-0.0); NUCLEATED RED BLOOD CELL 0.2 % (0.0-0.0); PLATELET COUNT AUTOMATED 224 10*3/uL (130-400); RED BLOOD COUNT 3.78 10*6/uL (4.50-5.90); RED CELL DISTRI WIDTH 14.2 % (0-14.5)
[2020-03-02 07:28] LABS: MEAN CELL VOLUME 107.4 fl (80.0-94.0)
[2020-03-02 07:45] LABS: PLATELET SUFFICIENCY NORMAL (NORMAL); TOTAL CELLS COUNTED 100 #CELLS
--- NOTE | 2020-03-02 08:00 | NUR ---
PT REMAINS INTUBATED, PARALYZED AND SEDATED. PT REMAINS TACHYCARDIC IN 120'S. MAP 59-72 ON LEVOPHED,VASOPRESSIN AND EPINEPHERINE GTT'S. POX 100% ON 60% FIO2. PT IN PRONED POSITION. LUNG GARCIA DIM. SUCTIONED PT SMALL AMOUNT OF WHITE MUCUS. NGT PLACMENT VERIFIED WITH AN AIR BOLUS. ACTIVE BOWEL SOUNDS. JUSTICE PATENT FOR STRAW COLORED URINE. RECTAL JUSTICE PATENT FOR DARK BROWN LIQUID STOOL. PERIPHERAL EDEMA NOTED. WILL CONTINUE TO MONITOR PT.
--- NOTE | 2020-03-02 08:30 | NUR ---
DR VICKERS IN TO SEE PT. UPDATED HER ON PT'S CONDITION AND PLAN OF CARE. NEW ORDERS RECEIVED.
--- NOTE | 2020-03-02 09:30 | NUR ---
IV EPINEPHERINE GTT INCREASED TO 0.5. PT'S AND FAMILY TO BE HERE AROND 10:30 AM. WILL CONTINUE TO MONITOR PT.
--- NOTE | 2020-03-02 10:44 | NUR ---
Discussed hospice with Dr. Valera. and family are standing outside of [facility]. Discussed hospice services with them and they are agreeable. Discussed hospice agencies and they chose [facility]. flour worker notified.
[2020-03-02 10:49] LABS: ARTERIAL BLOOD GAS PH 7.016 (7.35-7.45)
[2020-03-02 10:50] LABS: ABG BASE EXCESS -10.1 mmol/L (-2.0-2.0)
--- NOTE | 2020-03-02 10:52 | NUR ---
QUALITY REP CONTACTED [facility] AND FAXED REFERRAL.
--- NOTE | 2020-03-02 11:10 | NUR ---
PT'S IN TO VISIT. DR VASQUEZ SPOKE WITH PT'S FAMILY AND THEY AGREED TO [facility]. HOSPICE TO BE IN LATER TO SPEAK WITH PT.
--- NOTE | 2020-03-02 11:52 | NUR ---
DR FRANCISCO IN TO SEE PT. UPDATED HIM ON PT'S CONDITION AND [facility] FOR [facility].
--- NOTE | 2020-03-02 13:30 | NUR ---
NOTIFIED ONE CALL VIKAS HAY OF PT'S [employer].
[2020-03-02 13:35] LABS: ARTERIAL BLOOD GAS PH 7.204 (7.35-7.45)
[2020-03-02 13:36] LABS: ABG BASE EXCESS -8.9 mmol/L (-2.0-2.0)
--- NOTE | 2020-03-02 14:15 | NUR ---
NICOLÁS FROM [facility] IN TO SPEAK WITH PT'S FAMILY. PT MADE DNRCC. PT TO BE TERMINALLY EXTUBATED OFF OF VENT, IV MEDS D/C'D AND THEN HOSPICE WILL BE PLACED AND THERIR ORDERS WILL BE PLACED.
--- NOTE | 2020-03-02 14:47 | NUR ---
SPOKE WITH [employer] REP. VIKAS HAY R/T [employer]. SHE STATED SHE WILL GIVE THE INFORMATION TO ANOTHER STAFF MEMBER AND THEY WILL CALL BACK SHORTLY. DO NOT EXTUBATE UNTIL AFTER THEY CALL BACK.
--- NOTE | 2020-03-02 15:15 | NUR ---
PT UNPRONED AND THEN EXTUBATED. PT IV NIMBEX AND DIPRIVAN GTT'S HAD PREVIOUSLY BEEN D/C'D. PT'S FAMILY IN WITH PT AFTER EXTUBATION.
--- NOTE | 2020-03-02 15:25 | NUR ---
PT HAS . ONE CALL INFORMED OF CTIME OF [facility] .
--- NOTE | 2020-03-02 15:27 | NUR ---
ONE CALL CASE # [id number].
--- NOTE | 2020-03-02 17:27 | NUR ---
CALLED [facility] FOR NOTIFICATION OF PT'S . THEY ARE GOING TO CALL BACK SHORTLY WITH POST MORTEM INSTRUCTIONS R/T JOSR.
--- NOTE | 2020-03-02 17:39 | NUR ---
SPOKE WITH FROM FROM [facility].
--- NOTE | 2020-03-02 18:20 | NUR ---
POST MORTEM CARE COMPLETED.
--- NOTE | 2020-03-02 19:33 | NUR ---
[facility] here to pickle solution maker body and transport to home.
== END 2020-03-02 19:33 | disposition expired | DRG 870 ==
LOC: ED 21:56 → ICCU 23:15 → EDHOLD 23:15 → ICCU 23:15
PROVIDERS: Family Medicine; Internal Medicine; Internal Medicine Critical Care Medicine; Nurse Practitioner Family; Social Worker Clinical; Student in an Organized Health Care Education/Training Program; ADMIT Emergency Medicine; ATTEND Emergency Medicine
PROC: 5A09357 Assistance with Respiratory Ventilation, Less than 24 Consecutive Hours, Continuous Positive Airway Pressure (ICD-10-PCS; principal; 2020-02-20)
PROC: 0BH17EZ Insertion of Endotracheal Airway into Trachea, Via Natural or Artificial Opening (ICD-10-PCS; 2020-02-21)
PROC: 5A1955Z Respiratory Ventilation, Greater than 96 Consecutive Hours (ICD-10-PCS; 2020-02-21)
PROC: 03HY32Z Insertion of Monitoring Device into Upper Artery, Percutaneous Approach (ICD-10-PCS; 2020-02-21)
PROC: 4A133B1 Monitoring of Arterial Pressure, Peripheral, Percutaneous Approach (ICD-10-PCS; 2020-02-21)
PROC: 4A133J1 Monitoring of Arterial Pulse, Peripheral, Percutaneous Approach (ICD-10-PCS; 2020-02-21)
PROC: 02HV33Z Insertion of Infusion Device into Superior Vena Cava, Percutaneous Approach (ICD-10-PCS; 2020-02-21)
PROC: B548ZZA Ultrasonography of Superior Vena Cava, Guidance (ICD-10-PCS; 2020-02-21)
PROC: XW033H5 Introduction of Tocilizumab into Peripheral Vein, Percutaneous Approach, New Technology Group 5 (ICD-10-PCS; 2020-02-21)
PROC: XW033E5 Introduction of Remdesivir Anti-infective into Peripheral Vein, Percutaneous Approach, New Technology Group 5 (ICD-10-PCS; 2020-02-24)
PROC: 5A09357 Assistance with Respiratory Ventilation, Less than 24 Consecutive Hours, Continuous Positive Airway Pressure (ICD-10-PCS; 2020-02-29)
PROC: 0BH17EZ Insertion of Endotracheal Airway into Trachea, Via Natural or Artificial Opening (ICD-10-PCS; 2020-02-29)
PROC: 02HV33Z Insertion of Infusion Device into Superior Vena Cava, Percutaneous Approach (ICD-10-PCS; 2020-02-29)
PROC: B548ZZA Ultrasonography of Superior Vena Cava, Guidance (ICD-10-PCS; 2020-02-29)
PROC: 03HY32Z Insertion of Monitoring Device into Upper Artery, Percutaneous Approach (ICD-10-PCS; 2020-02-29)
PROC: 4A133B1 Monitoring of Arterial Pressure, Peripheral, Percutaneous Approach (ICD-10-PCS; 2020-02-29)
PROC: 4A133J1 Monitoring of Arterial Pulse, Peripheral, Percutaneous Approach (ICD-10-PCS; 2020-02-29)
PROC: 0BH17EZ Insertion of Endotracheal Airway into Trachea, Via Natural or Artificial Opening (ICD-10-PCS; 2020-03-01)
PROC: 05HM33Z Insertion of Infusion Device into Right Internal Jugular Vein, Percutaneous Approach (ICD-10-PCS; 2020-03-01)
PROC: B543ZZA Ultrasonography of Right Jugular Veins, Guidance (ICD-10-PCS; 2020-03-01)
PROC: 5A1935Z Respiratory Ventilation, Less than 24 Consecutive Hours (ICD-10-PCS; 2020-03-02)
DX: A41.89 Other specified sepsis (principal); U07.1 COVID-19; J12.89 Other viral pneumonia; E43 Unspecified severe protein-calorie malnutrition; J80 Acute respiratory distress syndrome; R65.21 Severe sepsis with septic shock; D68.9 Coagulation defect, unspecified; E87.0 Hyperosmolality and hypernatremia; N17.9 Acute kidney failure, unspecified; Z68.41 Body mass index [BMI] 40.0-44.9, adult; E83.41 Hypermagnesemia; E87.6 Hypokalemia; E87.5 Hyperkalemia; E83.39 Other disorders of phosphorus metabolism; E11.65 Type 2 diabetes mellitus with hyperglycemia; D53.9 Nutritional anemia, unspecified; F41.9 Anxiety disorder, unspecified; E78.5 Hyperlipidemia, unspecified; I10 Essential (primary) hypertension; E66.01 Morbid (severe) obesity due to excess calories; F41.1 Generalized anxiety disorder; Z82.0 Family history of epilepsy and other diseases of the nervous system; Z82.49 Family history of ischemic heart disease and other diseases of the circulatory system; Z79.899 Other long term (current) drug therapy